=== PATIENT | male | born 1955 | race Caucasian/White ===

== ENCOUNTER 2016-04-26 09:28 | Emergency (ER) ==
[2016-04-26 09:34] VITALS: BP 154/84; TEMP 98.8; BMI 21.5
--- NOTE | 2016-04-26 09:48 | ED.PDOC ---
General ED Provider: Dr. MYRIAM ELLIOTT JR Chief Complaint: GI Bleed Stated Complaint: 60YO M this am noted blood in stool-- straining for months-- onstipation-- red drops of blood this am-- abd discomfort-- treated at clinic for constipation[End] 98.8 73 20 97% 154/84 10 2 stools this am,bright red blood SMALL amount, abd cramping[End] Time Seen by Physician: 09:49 Mode of Arrival: Walk-In Information Source: Patient Exam Limitations: No limitations [facility] Nursing and Triage Documentation Reviewed and Agree: No Review of Systems - Review Of Systems Constitutional: Reports: Malaise GI: Reports: Abdominal pain, Constipated, Rectal bleeding All Other Systems: Other Past Medical History - Past Medical History Previously Healthy: Yes Endocrine: Reports: None Cardiovascular: Reports: Hypertension Respiratory: Reports: None Hematological: Reports: None Gastrointestinal: Reports: GERD, Diverticulitis Genitourinary: Reports: None Neuro/Psych: Reports: None Musculoskeletal: Reports: None Cancer: Reports: None - Surgical History General Surgical History: Reports: Hernia Repair (DOUBLE HERNIA ) - Family History Family History: Reports: Unknown - Social History Smoking Status: Current every day smoker, Heavy tobacco smoker Hx Substance Use: No Alcohol Screening: None Physical Exam - Physical Exam Appearance: Well-appearing, No pain distress, Well-nourished Pain Distress: Moderate Eyes: KURT, EOMI, Conjunctiva clear ENT: Ears normal, Nose normal, Oropharynx normal Neck: Supple Cardiovascular: RRR, Pulses normal, No rub, No murmur GI/: Soft, Tender (left lower quadrant) Musculoskeletal: Normal strength, ROM intact, No edema, No calf tenderness Skin: Warm, Dry, Normal color Neurological: Sensation intact, Motor intact, Reflexes intact, Cranial nerves intact, Alert, Oriented Psychiatric: Affect appropriate, Mood appropriate Re-Evaluation - Re-Evaluation Time of Re-Evaluation: 10:27 ([id number] patietn notes 20 pound wt loss informed need to follow up with GI or surgery - states supposed to follwo up with 3 year colonoscopy- is probably due) Status: Unchanged Critical Care Note - Critical Care Note Total Time (mins): 0 Course - Course Orders, Labs, Meds: Lab Review 04/26/16 10:00 Stl Occult Blood (IFOB) Positive Stool Occult Blood #2 Pending Stool Occult Blood #3 Pending Orders Category Date Time Status OCCULT BLOOD, STOOL Stat LAB 04/26/16 10:00 Results Vital Signs: Temp Pulse Resp BP Pulse Ox 04/26/16 09:28 98.8 F 73 20 154/84 H 97 Departure - Departure Time of Disposition: 10:14 Disposition: HOME SELF-CARE Discharge Problem: Acute GI bleeding, Rectal pain Instructions: Rectal Bleeding (ED), Rectal Pain (ED) Condition: Good Pt referred to PMD for follow-up: Yes Additional Instructions: no evidence of blood on exam OBTAIN CONSULT FOR GASTROENTEROLOGY OR SURGICAL EVALUATION FOR RECTAL BLEED WITH HISTORY OF WEIGHT LOSS may follow up with usual specialist as before add fiber for three days- metamucil or citrusel full dose then half dose as needed for constipation if light headed if fever over 101.0, if bloody stools more3 than once or twice a day-return follow up with PMD - follow up with GI Prescriptions: Hydrocortisone Acetate [Anusol-Hc] 25 mg RC BID PRN #14 supp.rect PRN Reason: Rectal Discomfort Hyoscyamine Sulfate [Levsin-Sl] 0.125 mg SL TID PRN #12 tab.subl PRN Reason: crampy abdominal pain Allergies/Adverse Reactions: Allergies ciprofloxacin Adverse Reaction (Uncoded 04/26/16 09:37) ciprofloxacin HCl Adverse Reaction (Uncoded 04/26/16 09:37) Penicillins Adverse Reaction (Uncoded 04/26/16 09:37) Home Medications: Ambulatory Orders Hydrocortisone Acetate [Anusol-Hc] 25 mg RC BID PRN #14 supp.rect 04/26/16 Hyoscyamine Sulfate [Levsin-Sl] 0.125 mg SL TID PRN #12 tab.subl 04/26/16
[2016-04-26 10:12] LABS: OCCULT BLOOD INTERNAL QC 1 INTERNAL QC VALID; OCCULT BLOOD SAMPLE 1 POSITIVE (NEGATIVE)
[2016-04-26 12:45] LABS: OCCULT BLOOD INTERNAL QC 2 INTERNAL QC VALID; OCCULT BLOOD INTERNAL QC 3 INTERNAL QC VALID; OCCULT BLOOD SAMPLE 2 NO SPECIMEN RECEIVED (NEGATIVE); OCCULT BLOOD SAMPLE 3 NO SPECIMEN RECEIVED (NEGATIVE)
== END 2016-04-26 10:32 | disposition home or self-care (01) ==
LOC: ED 09:28
DX: K92.1 Melena (principal); K62.89 Other specified diseases of anus and rectum; R10.32 Left lower quadrant pain; F17.210 Nicotine dependence, cigarettes, uncomplicated
CPT/HCPCS: 82272; 99283

== ENCOUNTER 2016-04-27 14:09 | Outpatient (CLI) ==
[2016-04-26 09:34] VITALS: BMI 21.5
[2016-04-27 14:50] LABS: BASOPHILS # (AUTO) 0.1 K/uL (0-0.2); BASOPHILS % (AUTO) 0.5 % (0.0-3.0); EOSINOPHILS # (AUTO) 0.5 K/ul (0.0-0.7); EOSINOPHILS % (AUTO) 3.9 % (0.0-7.0); HEMATOCRIT 43.4 % (42.0-52.0); IMMATURE GRANULOCYTE % (AUTO) 0.5 % (0.0-5.0); LYMPHOCYTES % (AUTO) 23.3 (10.0-50.0); MEAN CORPUSCULAR HEMOGLOBIN 31.8 pg (27.0-31.0); MEAN CORPUSCULAR HGB CONC 34.6 (31.8-35.4); MEAN CORPUSCULAR VOLUME 91.9 fl (80.0-94.0); MONOCYTES # (AUTO) 0.9 K/uL (0.4-2.0); MONOCYTES % (AUTO) 7.1 (0-10); NEUTROPHILS # (AUTO) 8.4 K/ul (2.0-6.9); NEUTROPHILS % (AUTO) 64.7; PLATELET COUNT 296 10^3/uL (140-440); RED BLOOD COUNT 4.72 10^6/ul (4.70-6.10); WHITE BLOOD COUNT 13.03 K/ul (4.2-10.2)
[2016-04-27 14:57] LABS: ALBUMIN/GLOBULIN RATIO 1.25; BILIRUBIN,TOTAL 0.71 mg/dL (0.00-1.20); BUN/CREATININE RATIO 14.15; CALCIUM 9.4 mg/dL (8.2-10.2); CREATININE 1.13 mg/dL (0.60-1.10); TOTAL PROTEIN 7.2 g/dL (5.8-8.1)
--- NOTE | 2016-04-27 15:15 | CT ---
EXAM: CT abdomen pelvis without contrast HISTORY: Hemorrhage of the anus and rectum COMPARISON: CT abdomen pelvis 07/04/2013 TECHNIQUE: Serial axial images of the abdomen pelvis were performed from the lung bases through the inferior pelvis without contrast. These were viewed in multiple planes. FINDINGS: The lung bases are clear. Limited evaluation of the upper abdomen demonstrates numerous low attenuation lesions throughout the liver which are unchanged with the largest near the falciform ligament measuring 3 cm in diameter w ith Hounsfield units consistent with a cyst. Gallbladder is distended with no evidence of gallstone s or inflammation. The adrenal glands are unremarkable. The right kidney is normal. The left kidn ey demonstrates a stable lobular low attenuation lesion off the midpole of the left kidney measuring 4.4 x 3.5 cm, with Hounsfield units consistent with a cyst. The spleen is normal. The pancreas is unremarkable. The stomach is mild distended. There is thickening and mild inflammatory stranding involving the proximal sigmoid and the descendin g colon beginning near the splenic flexure. No definitive mass is identified. The remaining colon is unremarkable. The appendix is normal. The small bowel in the abdomen pelvis is normal. There i s mild atherosclerotic disease. There is no lymphadenopathy, free fluid or free air. There is surg ical change in the pelvis. The urinary bladder is nondistended. The osseous structures demonstrate mild scattered degenerative disease of the spine. IMPRESSION: 1. Thickening and mild inflammatory stranding involving the descending and the proximal sigmoid col on consistent with colitis. No focal fluid collection or free air is identified. 2. Multiple low attenuation hepatic cysts and stable left renal cyst. 3. Mild atherosclerotic disease and degenerative disease of the spine.
== END 2016-04-27 14:10 | disposition home or self-care (01) ==
LOC: RAD 14:09
PROVIDERS: ATTEND Nurse Practitioner Family
DX: R07.89 Other chest pain (principal); K62.5 Hemorrhage of anus and rectum; R19.5 Other fecal abnormalities
CPT/HCPCS: 36415; 80053; 82150; 83690; 85025; 93005; 93010

== ENCOUNTER 2016-05-09 11:10 | Inpatient (IN) ==
[2016-05-09 11:59] LABS: BASOPHILS # (AUTO) 0.1 K/uL (0-0.2); BASOPHILS % (AUTO) 0.7 % (0.0-3.0); EOSINOPHILS # (AUTO) 0.4 K/ul (0.0-0.7); EOSINOPHILS % (AUTO) 4.1 % (0.0-7.0); HEMATOCRIT 46.3 % (42.0-52.0); HEMOGLOBIN 15.9 g/dl (14.0-18.0); IMMATURE GRANULOCYTE % (AUTO) 0.4 % (0.0-5.0); LYMPHOCYTES # (AUTO) 1.9 K/uL (0.60-3.4); LYMPHOCYTES % (AUTO) 19.9 (10.0-50.0); MEAN CORPUSCULAR HEMOGLOBIN 32.1 pg (27.0-31.0); MEAN CORPUSCULAR HGB CONC 34.3 (31.8-35.4); MEAN CORPUSCULAR VOLUME 93.5 fl (80.0-94.0); MONOCYTES # (AUTO) 0.6 K/uL (0.4-2.0); MONOCYTES % (AUTO) 6.2 (0-10); NEUTROPHILS # (AUTO) 6.7 K/ul (2.0-6.9); NEUTROPHILS % (AUTO) 68.7; PLATELET COUNT 336 10^3/uL (140-440); RED BLOOD COUNT 4.95 10^6/ul (4.70-6.10); WHITE BLOOD COUNT 9.69 K/ul (4.2-10.2)
[2016-05-09 12:26] LABS: ALANINE AMINOTRANSFERASE 37 U/L (12-78); ALBUMIN/GLOBULIN RATIO 1.25; ALKALINE PHOSPHATASE 90 U/L (56-119); ANION GAP 11.4; ASPARTATE AMINO TRANSFERASE 33 U/L (15-37); BLOOD UREA NITROGEN 18 mg/dL (7-18); BUN/CREATININE RATIO 16.07; CALCIUM 9.5 mg/dL (8.2-10.2); CARBON DIOXIDE 31 mmol/L (23-31); CHLORIDE 103 mmol/L (98-107); CREATINE KINASE 88 U/L; CREATININE 1.12 mg/dL (0.60-1.10); GLUCOSE 126 mg/dL (82-115); POTASSIUM 3.4 mmol/L (3.5-5.1); SODIUM 142 mmol/L (136-145); TOTAL PROTEIN 7.2 g/dL (5.8-8.1)
[2016-05-09 12:29] LABS: PARTIAL THROMBOPLASTIN TIME 21.6 SEC (23.9-40.0); PROTHROMBIN TIME 10.2 SEC (9.3-11.0)
--- NOTE | 2016-05-09 14:53 | MRI ---
EXAM: MRI brain without and with IV contrast. DATE: 05/09/2016. HISTORY: Ataxia, right-sided weakness developed May 07 2016. Right-sided weakness and numbness e specially right hand. TECHNIQUE: Sagittal T1W the and postcontrast, axial T2W, axial FLAIR, axial T1W pre and postcontras t, axial DWI, coronal T1W postcontrast, and coronal T2W GRE [facility] the [facility] Kaia magnet. CONTRAST: Omniscan - 14 ml IV. COMPARISON: CT head 04/12/2015. MRI brain 10/10/2014. FINDINGS: Lateral ventricles, temporal tips, Sylvian fissures, and some frontal lobe sulci are slig htly prominent due to minor involutional change. No midline shift, mass effect or loculated extra-a xial fluid collection is demonstrated. No acute hemorrhage or neoplasm is identified. Narrow, confl uent rim of T2W/FLAIR hyperintensity is observed in the white matter abutting each lateral ventricle . Small number of 2-7 mm, T2W/FLAIR bright foci are scattered in the jo radiata, centrum semiova le and subcortical white matter similar to the September 2014. Prominent Virchow-Roger spaces us old le ft posterior putamen lacunar infarcts (x2) may account for the 2.6 mm and 3.4 mm T2W bright, T1W mohinder k foci. Several 5 mm to 2.2 cm DWI bright, T2W/FLAIR isointense foci in the left parietal lobe are consistent with acute, nonhemorrhagic infarcts of the cortex, subcortical white matter and centrum s emiovale on axial images #18, 19, 20. The watt - white matter differentiation is normal. The 7th/8 th cranial nerve complexes, cerebellopontine angles, brainstem, and visible cervical spinal cord are normal. There is no cerebellar tonsillar ectopia. Pituitary gland is normal in size and signal. Corpus callosum is normal in size and configuration. Left vertebral artery is dominant. Flow voids are present in the major intracranial arteries and in the dural venous sinuses. No aneurysm, AVM o r dural venous sinus thrombosis is apparent. No orbit abnormality is identified. Moderate number o f right mastoid air cells have T2W bright, T1W intermediate signal similar to previous MRI. Left ma stoid air cells are unremarkable. There is mucosal thickening in several ethmoid air cells and in tl th maxillary sinuses. No neck mass or lymphadenopathy is detected. No calvarial neoplasm or acute fr acture is evident. IMPRESSIONS: 1. Acute, non hemorrhagic left parietal lobe infarcts. 2. No acute hemorrhage, mass or hydrocephalus. 3. Minor / mild supratentorial small vessel disease. 4. Virchow-Roger spaces vs old left putamen infarcts. 5. Minimal cerebral involutional change. 6. Moderate, chronic right mastoid disease. 7. Minor ethmoid and maxillary sinus disease. Critical result: Report called to ER physician at 1448 hrs, 05/09/2016.
--- NOTE | 2016-05-09 15:16 | ED.PDOC ---
General ED Provider: Dr. JANUSZ COLE Chief Complaint: Stroke Stated Complaint: CVA Time Seen by Physician: 11:11 Mode of Arrival: Walk-In Information Source: Patient Exam Limitations: No limitations Nursing and Triage Documentation Reviewed and Agree: Yes Neurological Complaint Exam - Weakness Complaint/Exam Last Known Well: 2 DAYS AGO Onset: Sudden Duration: 2 DAYS AGO WOKE UP WITH RIGHT HAND WEAKNESS AND VERTIGO WEAKNESS IMPROVED Symptoms Are: Still present (INTERMS OF VERTIGO) Timing: Constant Initial Severity: Mild Current Severity: Mild Character: Reports: Lightheaded, Weak Aggravating: Reports: None Alleviating: Reports: None Associated Signs and Symptoms: Denies: Nausea, Vomiting, Diaphoresis, Tinnitus, Chest pain, Short of air, Palpitations, Unsteady gait, GI blood loss, Visual changes, Decreased oral intake, Change in medication, Change in diet, OTC meds, Loss of balance Cardiac Risk Factors: Reports: Hypertension CVA Risk Factors: Reports: Hypertension Related Surgical History: Reports: None JVD Present: No Carotid Bruit Present: No Rectal Heme Positive: No Nystagmus Present: No Gag Reflex Present: Yes Meningeal Signs Positive: No Focal Weakness: Present: None Focal Sensory Loss: Present: None Gait: Ataxic [id number]: Normal Findings Differential Diagnoses: Other (CVA) Quality Indicators for Cardiac Chest Pain: EKG in 10min. Quality Indicators for AMI: EKG in 10min. Review of Systems - Review Of Systems Constitutional: Reports: No symptoms Eyes: Reports: No symptoms Ears, Nose, Mouth, Throat: Reports: No symptoms Respiratory: Reports: No symptoms Cardiac: Reports: No symptoms GI: Reports: No symptoms : Reports: No symptoms Musculoskeletal: Reports: No symptoms Skin: Reports: No symptoms Neurological: Reports: Weakness (RIGHT HAND AND ATAXIA ) Endocrine: Reports: No symptoms Hematologic/Lymphatic: Reports: No symptoms All Other Systems: Reviewed and Negative Past Medical History - Past Medical History Previously Healthy: Yes Endocrine: Reports: None Cardiovascular: Reports: Hypertension Respiratory: Reports: None Hematological: Reports: None Gastrointestinal: Reports: GERD, Diverticulitis Genitourinary: Reports: None Neuro/Psych: Reports: None Musculoskeletal: Reports: None Cancer: Reports: None - Surgical History General Surgical History: Reports: Hernia Repair (DOUBLE HERNIA ) - Family History Family History: Reports: Unknown - Social History Smoking Status: Current every day smoker, Heavy tobacco smoker Hx Substance Use: No Alcohol Screening: None Physical Exam - Physical Exam Appearance: Well-appearing, No pain distress, Well-nourished Eyes: KURT, EOMI, Conjunctiva clear ENT: Ears normal, Nose normal, Oropharynx normal Respiratory: Airway patent, Breath sounds clear, Breath sounds equal, Respirations nonlabored Cardiovascular: RRR, Pulses normal, No rub, No murmur GI/: Soft, Nontender, No masses, Bowel sounds normal, No Organomegaly Musculoskeletal: Normal strength, ROM intact, No edema, No calf tenderness Skin: Warm, Dry, Normal color Neurological: Sensation intact (ATAXIC), Motor intact, Reflexes intact, Cranial nerves intact Psychiatric: Affect appropriate, Mood appropriate Interpretation - Radiology Interpretation Radiology Interpretation By: Radiologist Radiology Results: Positive (CVA ACUTE LEFT PARIETAL LOBE) - 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 Rate: 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 Rhythm: Sinus Ectopy: None - EKG Interpretation Rate: Normal Rhythm: Sinus Ectopy: None Rayle: NL ST Segment: Normal Re-Evaluation - Re-Evaluation Time of Re-Evaluation: 12:00 Status: Unchanged Vital Signs Stable: Yes Pain Level: 0 Appearance: NAD Lungs: Clear Skin: Warm and Dry Neuro: Alert and Oriented X3 CV: RRR - Re-Evaluation Time of Re-Evaluation: 00:00 Vital Signs Stable: Yes Pain Level: 0 Appearance: NAD Skin: Warm and Dry Neuro: Alert and Oriented X3 CV: RRR (HOSPITALIST SAW PT IN THE E.D.) Physician Notification - Case Discussed Admit To: Inpatient Critical Care Note - Critical Care Note Total Time (mins): 0 Course - Course Hematology/Chemistry: 05/09/16 11:20 05/09/16 11:20 Orders, Labs, Meds: Lab Review 05/09/16 11:20 WBC 9.69 RBC 4.95 Hgb 15.9 Hct 46.3 MCV 93.5 MCH 32.1 H MCHC 34.3 RDW Coeff of Juan 12.6 Plt Count 336 Immature Gran % (Auto) 0.4 Neut % (Auto) 68.7 Lymph % (Auto) 19.9 [place] % (Auto) 6.2 Eos % (Auto) 4.1 Baso % (Auto) 0.7 Immature Gran # (Auto) 0.0 Neut # 6.7 Lymph # 1.9 Traill # 0.6 Eos # 0.4 Baso # 0.1 PT 10.2 INR 0.99 APTT 21.6 L Sodium 142 Potassium 3.4 L Chloride 103 Carbon Dioxide 31 Anion Gap 11.4 BUN 18 Creatinine 1.12 H Estimated GFR (MDRD) 67.00 BUN/Creatinine Ratio 16.07 Glucose 126 H Calcium 9.5 Total Bilirubin 0.60 AST 33 ALT 37 Alkaline Phosphatase 90 Total Creatine Kinase 88 Troponin I < 0.0100 Total Protein 7.2 Albumin 4.0 Globulin 3.2 Albumin/Globulin Ratio 1.25 Orders Category Date Time Status EKG-(ED ONLY) Stat CARDIO 05/09/16 11:50 Completed CBC W/ AUTO DIFF Stat LAB 05/09/16 11:20 Completed COMPREHENSIVE METABOLIC PANEL Stat LAB 05/09/16 11:20 Completed CREATINE KINASE Stat LAB 05/09/16 11:20 Completed PARTIAL THROMBOPLASTIN TIME Stat LAB 05/09/16 11:20 Completed PT WITH INR Stat LAB 05/09/16 11:20 Completed TROPONIN I Stat LAB 05/09/16 11:20 Completed MRI BRAIN W/WO CONTRAST Stat RADS 05/09/16 12:56 Completed Vital Signs: Temp Pulse Resp BP Pulse Ox 05/09/16 11:11 96.9 F L 87 16 158/111 H 99 Departure - Departure Time of Disposition: 15:19 Disposition: ADMITTED INPATIENT Discharge Problem: Acute CVA (cerebrovascular accident) Instructions: Self Care Measures After a Stroke (ED) Condition: Good Pt referred to PMD for follow-up: No Additional Instructions: Please call your Family Physician as soon as possible to schedule a follow-up appointment. Allergies/Adverse Reactions: Allergies ciprofloxacin [From Cipro] Adverse Reaction (Verified 05/09/16 11:16) Penicillins Adverse Reaction (Verified 05/09/16 11:16)
[2016-05-09] MEDS ORDERED: XANAX PO PRN (15:23)
[2016-05-09] MEDS ORDERED: NORVASC PO ONE (15:30)
[2016-05-09] MEDS ORDERED: NON-FORMULARY MEDICATION (Amlodipine Besylate [Norvasc] 10 MG) PO SCH ×44 (15:30→17:30)
[2016-05-09] MEDS: SODIUM CHLORIDE 1,000 ML IV SCH (16:10)
[2016-05-09 16:23] VITALS: BMI 20.5
[2016-05-09] MEDS ORDERED: CATAPRES PO PRN (18:42)
[2016-05-09] MEDS ORDERED: CARAFATE ONE (19:48)
[2016-05-09] MEDS: ASPIRIN EC PO SCH (20:18)
[2016-05-09] MEDS: BENADRYL PO SCH (20:18)
[2016-05-09] MEDS: ZANTAC PO SCH (20:18)
[2016-05-09] MEDS ORDERED: CARAFATE PO SCH (21:00)
[2016-05-10 05:09] LABS: BASOPHILS # (AUTO) 0.1 K/uL (0-0.2); BASOPHILS % (AUTO) 0.7 % (0.0-3.0); EOSINOPHILS # (AUTO) 0.6 K/ul (0.0-0.7); EOSINOPHILS % (AUTO) 7.2 % (0.0-7.0); HEMATOCRIT 40.8 % (42.0-52.0); HEMOGLOBIN 13.9 g/dl (14.0-18.0); IMMATURE GRANULOCYTE % (AUTO) 0.6 % (0.0-5.0); LYMPHOCYTES % (AUTO) 35.1 (10.0-50.0); MEAN CORPUSCULAR HEMOGLOBIN 32.1 pg (27.0-31.0); MEAN CORPUSCULAR HGB CONC 34.1 (31.8-35.4); MEAN CORPUSCULAR VOLUME 94.2 fl (80.0-94.0); MONOCYTES # (AUTO) 0.7 K/uL (0.4-2.0); MONOCYTES % (AUTO) 8.1 (0-10); NEUTROPHILS # (AUTO) 4.2 K/ul (2.0-6.9); NEUTROPHILS % (AUTO) 48.3; PLATELET COUNT 267 10^3/uL (140-440); RED BLOOD COUNT 4.33 10^6/ul (4.70-6.10); WHITE BLOOD COUNT 8.64 K/ul (4.2-10.2)
[2016-05-10] MEDS: SODIUM CHLORIDE 1,000 ML IV SCH ×2 (05:10→20:54)
[2016-05-10 05:56] LABS: ALBUMIN 3.5 g/dL (3.4-5.0); ALBUMIN/GLOBULIN RATIO 1.35; ANION GAP 11.4; BILIRUBIN,TOTAL 0.52 mg/dL (0.00-1.20); BUN/CREATININE RATIO 18.08; CALCIUM 8.8 mg/dL (8.2-10.2); CHOL/HDL RATIO 3.4 (4.5-6.4); CREATININE 0.94 mg/dL (0.60-1.10); POTASSIUM 4.4 mmol/L (3.5-5.1); TOTAL PROTEIN 6.1 g/dL (5.8-8.1)
[2016-05-10] MEDS: ZESTRIL PO SCH (08:44)
[2016-05-10] MEDS: ASPIRIN EC PO SCH (08:44)
[2016-05-10] MEDS: CARAFATE PO SCH ×2 (08:44→18:07)
[2016-05-10] MEDS: NORVASC PO SCH (08:44)
--- NOTE | 2016-05-10 11:36 | PCM.PROG ---
Attending Provider: ATTENDING PROVIDER: Dr. GRETEL WILLINGHAM DATE OF SERVICE: 05/10/16 SUBJECTIVE: This 60 year old WHITE/ M was hospitalized 05/09/16. The patient is admitted with weakness on the right side and left parietal stroke The patient continues to complain of weakness of the right lower and right upper extremity. The patient has no slurred speech. He has an ataxic gait. The patient's motor strength is normal however he states it feels like he is floating when he walks. REVIEW OF SYSTEMS: CONSTITUTIONAL: No fever, no chills. ENDOCRINE: No weight loss or weight gain. HEENT: No sinus drainage, no sore throat. CVS: No angina symptoms. No CHF symptoms. No palpitations. No atypical chest pain for CAD. No shortness of breath. RESPIRATORY: No cough, no hemoptysis. GI: No melena. No abdominal pain. No nausea, no vomiting. : No hematuria. No polyuria. SKIN: No rash. No wounds. MUSCULOSKELETAL: No pain. STOCK CHECKER: No blackout, no dizziness. No headache. No double vision. PSYCHIATRIC: Not anxious; no depression. No suicidal thoughts. No homicidal thoughts. PHYSICAL EXAMINATION: GENERAL: Lying in bed in no distress. VITAL SIGNS: Temperature 96.8 F, Pulse 67, Respiratory Rate 16, BP 129/83, Pulse Ox 98% HEENT: Normocephalic, atraumatic. Mucosa is dry, pallor positive. NECK: No JVP, no carotid bruit. No lymphadenopathy. CARDIAC: S1, S2, no S3. No murmur, gallop or regurgitation. LUNGS: Clear to auscultation. ABDOMEN: Soft, non-tender. Bowel sounds active. No rigidity, guarding or CVA tenderness. EXTREMITIES: No clubbing, cyanosis or edema. Gait: Ataxic. NEUROLOGIC: Awake, alert and oriented x3. Motor strength is normal. LYMPHATIC: No palpable lymph nodes SKIN: Not dry. Intact. MUSCULOSKELETAL: No joint swelling. LAB REVIEW: 05/10/16 05:00 05/10/16 05:00 05/10/16 05:00: WBC 8.64, RBC 4.33 L, Hgb 13.9 L, Hct 40.8 L, MCV 94.2 H, MCH 32.1 H, MCHC 34.1, RDW Coeff of Juan 12.7, Plt Count 267, Immature Gran % (Auto) 0.6, Neut % (Auto) 48.3, Lymph % (Auto) 35.1, [place] % (Auto) 8.1, Eos % (Auto) 7.2 H, Baso % (Auto) 0.7, Immature Gran # (Auto) 0.1, Neut # 4.2, Lymph # 3.0, [place] # 0.7, Eos # 0.6, Baso # 0.1, Sodium 144, Potassium 4.4, Chloride 109 H, Carbon Dioxide 28, Anion Gap 11.4, BUN 17, Creatinine 0.94, Estimated GFR (MDRD ) 82.00, BUN/Creatinine Ratio 18.08, Glucose 87, Calcium 8.8, Total Bilirubin 0.52, AST 25, ALT 29, Alkaline Phosphatase 72, Total Protein 6.1, Albumin 3.5, Globulin 2.6, Albumin/Globulin Ratio 1.35, Triglycerides 82, Cholesterol 105, LDL Cholesterol, Calc 58, VLDL Cholesterol 16, HDL Cholesterol 31 L, Cholesterol /HDL Ratio 3.4 L, TSH 1.192, Free T4 1.10 ASSESSMENT: 1. Acute CVA, left parietal 2. Ataxia 3. Hypertension PLAN: 1. Carotid ultrasound 2. PT evaluation 3. Aspirin 81 mg p.o. daily Plan and coordination of the patient's care discussed in the presence of Underwriting Service Representative and nurse. CONDITION: Stable SCRIBED BY: RICK ABEL Mechanic Senior scribed while in presence of service performed by Dr. GRETEL WILLINGHAM on 05/10/16 ([id number])
--- NOTE | 2016-05-10 11:37 | RS.PTINEVL ---
Subjective - Patient information Date of Evaluation: 05/10/16 Date of Arrival on Unit: 05/09/16 Admitted From:: Emergency Dept Usual Living Arrangement: With Spouse Living Arrangement Comments: lives at home Medical History: Hypertension Medical History Comments:: double hernia repair, OA, GERD, Prostate removal 2013 Subjective Information/ Patient Comments:: Patient reports he can get around fine. States he doesn't need gait belt. Denies any dizziness. States his main problem is numbness and weakness in the first three fingers of the right hand. Right wrist feels slightly weak. States he drove himself to the ER. States the only reason he did not come in on Monday, when it started, is because he did not feel like driving. States he cannot write very well with the right hand due to weakness. 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 Sensation - Sensation Right Upper Extremity Sensation: Impaired Left Upper Extremity Sensation: Intact/Normal Right Lower Extremity Sensation: Intact/Normal Left Lower Extremity Sensation: Intact/Normal Balance - Sitting Balance and Reactions Static Sitting Balance: Normal Dynamic Sitting Balance: Normal Sitting Equilibrium Reactions: Within Normal Limits Left, Within Normal Limit Right Sitting Protective Reactions: Within Normal Limits Left, Within Normal Limit Right - Standing Balance and Reactions Static Standing Balance: Good Dynamic Standing Balance: Good Standing Equilibrium Reactions: Within Normal Limits Left, Within Normal Limit Right Standing Protective Reactions: Within Normal Limits Left, Within Normal Limit Right Functional Mobility - Bed Mobility Rolling R/L: Independent Scooting: Independent Supine to Sit: Independent Sit to Supine: Independent - Transfers Sit to Stand: Independent Stand to Sit: Independent Stand Pivot Transfers: Independent - Safety Awareness Safety Awareness: Good Ambulation - Ambulation Weight Bearing Status: FWB Distance: 400 feet Assistance needed with Ambulation: Supervision Quality of Ambulation: Patient ambulates without an assistive device and without shoes (wearing hospital socks). Demonstrates no gait deviation: clears feet consistently during swing phase, no loss of balance, equal stride length, continues continuity of steps while changing direction. Treatment time - Time with patient Total treatment time: 20 (mins) Patient Education - Education Patient Education: Education of diagnosis Teaching Recipient: Patient Teaching Methods: Discussion, Demonstration Comments: Patient given red theraband to work his right wrist. Also given stress ball and theraputty for hand/electrical transmission engineer strengthening. Assessment - Assessment Problem List:: Weakness (right hand/wrist) Comments: Recommend OT consult to address right UE weakness. Plan Frequency of Treatment: One time treatment Duration of Treatment: One Time Treatment Anticipated Discharge Destination: Home
--- NOTE | 2016-05-10 12:33 | US ---
EXAM: ULTRASOUND CAROTID DUPLEX, BILATERAL HISTORY: Right-sided weakness FINDINGS: Tirado-scale ultrasound, color Doppler and spectral analysis was performed. Velocities are in meters per second. By tirado scale and color Doppler imaging, there were regions of heterogeneous plaque formation identi fied within the carotid bulbs and internal carotid arteries. These regions of plaque appeared to re main less than 50% vessel diameter. RIGHT: External carotid artery peak systolic velocity: 0.9/0.1 Common carotid artery peak systolic velocity/end diastolic velocity: 1.1/0.3 Internal carotid artery peak systolic velocity: 1.0 ICA/CCA peak systolic velocity ratio: 0.9 ICA end diastolic velocity: 0.3 LEFT: External carotid artery peak systolic velocity: 1.2/0.2 Common carotid artery peak systolic velocity/end diastolic velocity: 0.8/0.2 Internal carotid artery peak systolic velocity: 0.8 ICA/CCA peak systolic velocity ratio: 1.0 ICA end diastolic velocity: 0.3 The right and left vertebral arteries were antegrade. IMPRESSION: 1. By tirado scale and color Doppler imaging, there were regions of heterogeneous plaque formation id entified within the carotid bulbs and internal carotid arteries. These regions of plaque appeared t o remain less than 50% vessel diameter. 2. Internal carotid artery peak systolic velocities and ICA/CCA peak systolic velocity ratios indic ate no hemodynamically significant stenosis bilaterally. 3. Both vertebral arteries were antegrade.
--- NOTE | 2016-05-10 12:57 | HP ---
DATE OF SERVICE: 05/09/16 REASON FOR HOSPITALIZATION: Right sided weakness. HISTORY OF PRESENT ILLNESS: The patient is a 60 year old male been feeling weakness since Monday night. Monday night when he was going to the bed was fine, Monday morning woke up with the right sided weakness and the numbness getting better ever side. Right hand and the leg still feels weak and has some unsteady gait so came for the evaluation today and seen by Dr. More in the emergency room. Blood pressure was 158/111, some right sided weakness, MRI of the brain was done with and without contrast which showed the left parietal lobe infarct. At that time the patient is admitted to the hospital for the acute CVA. REVIEW OF SYSTEMS: CONSTITUTIONAL: No night sweats.Right sided weakness and numbness. No fever or chills. HEENT: Eyes: No visual changes. No eye pain. No eye discharge. ENT: No runny nose. No epistaxis. No sinus pain. No sore throat. No odynophagia. No ear pain. No congestion. RESPIRATORY: No cough, no congestion. No hemoptysis. CARDIOVASCULAR: No angina symptoms. No CHF symptoms. No atypical chest pain for CAD. No palpitations. No shortness of breath. GASTROINTESTINAL: No abdominal pain. No nausea or vomiting. No diarrhea or constipation. No hematemesis. No hematochezia. GENITOURINARY: No urgency. No frequency. No dysuria. No hematuria. No obstructive symptoms. No discharge. No pain. No significant abnormal bleeding. MUSCULOSKELETAL: No musculoskeletal pain. No joint swelling. No arthritis. NEUROLOGICAL: No headache. No neck pain. No syncope. No seizures. No dizziness. PSYCHIATRIC: Anxious. No depression. No suicidal thoughts. No homicidal thoughts. SKIN: No rash. No lesions. No wounds. ENDOCRINE: No unexplained weight loss. No weight gain. HEMATOLOGIC/LYMPHATIC: No anemia. No purpura. No petechiae. No prolonged or excessive bleeding. No palpable lymph nodes. PERSONAL/FAMILY/SOCIAL HISTORY: The patient does smoke, half pack a day for fifty years. and lives with the . 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 Family history is significant for the coronary artery disease. PAST MEDICAL/SURGICAL PROBLEMS: Hypertension COPD GERD Prostate Cancer Osteoarthritis Nicotine use Double hernia repair Circumcision Prostatectomy MEDICATIONS: Norvasc Lisinopril Zantac Carafate Xanax Benadryl ALLERGIES: Ciprofloxacin Penicillins PHYSICAL EXAMINATION: VITAL SIGNS: blood pressure 158/111, temperature 96.9, pulse 87, oxygen saturation 99% and respiratory rate 16. HEENT: Head normocephalic, atraumatic. Eyes: Extraocular muscles are intact. Pupils are equal, round and reactive to light and accommodation. Ears: No lesions. Nose appeared normal. Throat: No exudate or erythema. NECK: Supple. No JVD, no carotid bruit. No lymphadenopathy or thyromegaly. LUNGS: Clear to auscultation. Percussion note normal. Chest symmetrical. HEART: S1, S2, no S3. No murmurs. No cyanosis or clubbing. No ascites. Pulses: Dorsalis pedis and posterior tibial pulses +1 to +2 both sides. ABDOMEN: Soft. Nontender. Bowel sounds active. No CVA tenderness. No mass felt. EXTREMITIES: Right sided weakness and numbness, right upper and lower extremity. No edema. Full range of motion of all extremities, equal. NEUROLOGIC: No focal deficit. Cranial nerves II through XII are grossly intact. No headache, no double vision or headache. SKIN: Not dry. Intact. Turgor - normal. LYMPHATIC: No palpable lymph nodes/no lymphedema. MUSCULOSKELETAL: Normal joints with no swelling. Muscle tone is normal. LABS: WBC 9.69, hgb 15.9, hct 46.3, plt count 336, PT INR normal, Sodium 142, potassium 3.4, chloride 103, Bicarb 31, BUN 18, creatinine 1.12, glucose 126 and first set of cardiac enzymes are negative. EKG is normal. MRI of the brain left parietal infarct ASSESSMENT: 1. Acute parietal lobe infarct with right sided weakness 2. Hypertension 3. Anxiety 4. GERD 5. Dyslipidemia PLAN: 1. Admit patient to the regular floor 2. CBC and CMP today and daily 3. Cardiac and Troponin 4. Carotid Ultrasound in the morning 5. Aspirin 81mg PO daily 6. Blood pressure more than 180 give the Clonidine 0.2mg 7. TSH and lipids in the morning Will follow the patient in daily rounds. TIME SPENT: More than 60 minutes. MTDD
[2016-05-10] MEDS: BENADRYL PO SCH (20:55)
[2016-05-10] MEDS: ZANTAC PO SCH (20:55)
[2016-05-10] MEDS: COLACE PO SCH (20:56)
[2016-05-11 05:01] LABS: BASOPHILS # (AUTO) 0.1 K/uL (0-0.2); BASOPHILS % (AUTO) 0.6 % (0.0-3.0); EOSINOPHILS # (AUTO) 0.7 K/ul (0.0-0.7); EOSINOPHILS % (AUTO) 7.5 % (0.0-7.0); HEMOGLOBIN 13.7 g/dl (14.0-18.0); IMMATURE GRANULOCYTE % (AUTO) 0.2 % (0.0-5.0); LYMPHOCYTES # (AUTO) 3.4 K/uL (0.60-3.4); LYMPHOCYTES % (AUTO) 35.5 (10.0-50.0); MEAN CORPUSCULAR HEMOGLOBIN 31.9 pg (27.0-31.0); MEAN CORPUSCULAR HGB CONC 34.3 (31.8-35.4); MONOCYTES # (AUTO) 0.9 K/uL (0.4-2.0); MONOCYTES % (AUTO) 8.8 (0-10); NEUTROPHILS # (AUTO) 4.6 K/ul (2.0-6.9); NEUTROPHILS % (AUTO) 47.4; PLATELET COUNT 258 10^3/uL (140-440); WHITE BLOOD COUNT 9.65 K/ul (4.2-10.2)
[2016-05-11 05:34] LABS: ALBUMIN 3.5 g/dL (3.4-5.0); ALBUMIN/GLOBULIN RATIO 1.3; ANION GAP 9.7; BILIRUBIN,TOTAL 0.55 mg/dL (0.00-1.20); BUN/CREATININE RATIO 15.73; CALCIUM 8.8 mg/dL (8.2-10.2); CREATININE 0.89 mg/dL (0.60-1.10); POTASSIUM 3.7 mmol/L (3.5-5.1); TOTAL PROTEIN 6.2 g/dL (5.8-8.1)
[2016-05-11] MEDS: CARAFATE PO SCH (05:48)
[2016-05-11] MEDS: COLACE PO SCH (09:06)
[2016-05-11] MEDS: ZESTRIL PO SCH (09:06)
[2016-05-11] MEDS: ASPIRIN EC PO SCH (09:06)
[2016-05-11] MEDS: NORVASC PO SCH (09:06)
[2016-05-11 10:13] VITALS: BP 138/84; TEMP 97.5
--- NOTE | 2016-05-11 10:32 | ECHO2D ---
Date of Exam: 05/11/16 Ordering Physician: HOSPITALIST--GRETEL WILLINGHAM Reason for Echo: CVA, ATAXIA, HYPERTENSION M-Mode Normal Adult Results LV Dimensions Normal Adult Results AoV Opening excursions >1.6 >1.6 LVEDD-base- 3.5-5.8 3.9 Ao root dimensions 2.0-3.7 3.3 LVESD-base- 3.1-4.6 L. Atrium dimensions 1.9-3.8 2.8 Post. Wall thickness 0.8-1.1 1.2 IV septum (thickness) 0.7-1.2 1.1 Post. Wall excursion 0.72-1.3 NORMAL Septal motion NORMAL Systolic motion R. Ventricular cavity 1.5-2.0 NORMAL LVEF 60% 72% Paradoxical septal wall motion NORMAL 2-D : 2-D M Mode Echocardiogram was performed using apical four chamber and left parasternal long and short axis views. Mitral, tricuspid and aortic valves appear to be normal. Contractility of the left ventricle seems to be normal, so is the cavity size. Left atrial cavity size and aortic root appear to be normal. There is no pericardial effusion. There is no thrombus noted in the left ventricular or left aortic cavity. No mitral valve prolapse noted. M-MODE: MV: NORMAL AV: NORMAL TV: NORMAL PV: CHAMBER SIZE: NORMAL WALL MOTION: NORMAL PERICARDIUM: NORMAL INTERPRETATION: 1. 2 "D" "M" MODE ECHO MTDD
--- NOTE | 2016-05-11 13:02 | PCM.PROG ---
Attending Provider: ATTENDING PROVIDER: Dr. GERTEL WILLINGHAM DATE OF SERVICE: 05/11/16 SUBJECTIVE: This 60 year old WHITE/ M was hospitalized 05/09/16. The patient states he has lost quite a bit of weight in the last [address] scan of the abdomen done last week, will get those results. Echocardiogram done this morning. The patient states he is ambulating fine. He states he does have weakness in the right hand; discussed giving a rubber ball to squeeze for strengthening, Discussed possible discharge today. REVIEW OF SYSTEMS: CONSTITUTIONAL: No fever, no chills. ENDOCRINE: No weight loss or weight gain. HEENT: No sinus drainage, no sore throat. CVS: No angina symptoms. No CHF symptoms. No palpitations. No atypical chest pain for CAD. No shortness of breath. RESPIRATORY: No cough, no hemoptysis. GI: No melena. No abdominal pain. No nausea, no vomiting. : No hematuria. No polyuria. SKIN: No rash. No wounds. MUSCULOSKELETAL: No pain. CURTAIN CLEANER: No blackout, no dizziness. No headache. No double vision. PSYCHIATRIC: Not anxious; no depression. No suicidal thoughts. No homicidal thoughts. PHYSICAL EXAMINATION: GENERAL: Lying in bed in no distress. VITAL SIGNS: Temperature 97.6 F, Pulse 66, Respiratory Rate 16, BP 156/93, Pulse Ox 98% HEENT: Normocephalic, atraumatic. Mucosa is dry, pallor positive. NECK: No JVP, no carotid bruit. No lymphadenopathy. CARDIAC: S1, S2, no S3. No murmur, gallop or regurgitation. LUNGS: Clear to auscultation. ABDOMEN: Soft, non-tender. Bowel sounds active. No rigidity, guarding or CVA tenderness. EXTREMITIES: No clubbing, cyanosis or edema. NEUROLOGIC: Awake, alert and oriented x3. Weakness in the right hand. LYMPHATIC: No palpable lymph nodes SKIN: Not dry. Intact. MUSCULOSKELETAL: No joint swelling. LAB REVIEW: 05/11/16 04:05 05/11/16 04:05 05/11/16 04:05: WBC 9.65, RBC 4.30 L, Hgb 13.7 L, Hct 40.0 L, MCV 93.0, MCH 31.9 H, MCHC 34.3, RDW Coeff of Juan 12.6, Plt Count 258, Immature Gran % (Auto) 0.2, Neut % (Auto) 47.4, Lymph % (Auto) 35.5, [place] % (Auto) 8.8, Eos % (Auto) 7.5 H, Baso % (Auto) 0.6, Immature Gran # (Auto) 0.0, Neut # 4.6, Lymph # 3.4, [place] # 0.9, Eos # 0.7, Baso # 0.1, Sodium 142, Potassium 3.7, Chloride 107, Carbon Dioxide 29, Anion Gap 9.7, BUN 14, Creatinine 0.89, Estimated GFR (MDRD) 87.00, BUN/Creatinine Ratio 15.73, Glucose 82, Calcium 8.8, Total Bilirubin 0.55 , AST 25, ALT 27, Alkaline Phosphatase 71, Total Protein 6.2, Albumin 3.5, Globulin 2.7, Albumin/Globulin Ratio 1.30 ASSESSMENT: 1. Acute CVA, left parietal 2. Ataxia 3. Hypertension PLAN: 1. Possible discharge today 2. Clonidine p.r.n. for elevated blood pressure greater than 180 Plan and coordination of the patient's care discussed in the presence of Staff Nurse Anesthetist and nurse. CONDITION: Stable SCRIBED BY: RICK ABEL, Hotel Services Supervisor scribed while in presence of service performed by Dr. GRETEL WILLINGHAM on 05/11/16 ([id number])
--- NOTE | 2016-06-02 15:24 | DS ---
DATE OF SERVICE: 05/11/16 FINAL DIAGNOSIS: 1. Acute CVA, left parietal 2. Ataxia 3. Hypertension 4. Anemia, mild 5. COPD 6. History fo GERD 7. Prostate cancer removed in 2013 8. Osteoarthritis 9. Nicotine use, half pack a day for 50 years 10.Family history of coronary artery disease DISCHARGE INSTRUCTIONS: Discharge the patient home. Followup in the [facility] in 5-7 days. Continue the home medications. MEDICATIONS AT DISCHARGE: Norvasc Benadryl Lisinopril Zantac Carafate NEW PRESCRIPTIONS: Aspirin 81mg PO daily DIET INSTRUCTIONS: Regular ACTIVITY: As tolerated SMOKING: Counseling for smoking done. DISEASE SPECIFIC EDUCATION: Stroke Secondary prevention Medication side effects been discussed Lifestyle modification Smoking HOSPITAL COURSE: Michele Agustin who is a 60 year old male came to the emergency room with the right upper and lower extremity weakness which is more than 3 hours. He was seen by Dr. More. The patient was admitted to the hospital, MRI of the brain was done which showed the acute non-hemorrhagic left parietal infarct. The patient was started on IV fluids and home medication Zestril. Carotid Ultrasound was obtained which showed Less than 50% blockage. We did go ahead and get the echocardiogram which showed normal ejection fraction 72%. The patient was up and about gradually walking, had still some mild weakness on the right sided. He was put for the physical therapy but the patient was in good activity so they did not see that he was a candidate for that, he is not a candidate for the TCU care but we suggested outpatient physical therapy for which he qualified and the patient is being discharged home on the Aspirin. Lifestyle modification been again informed. TIME SPENT: More than 55 minute today. HADLEY
== END 2016-05-11 14:05 | disposition home or self-care (01) | DRG 65 ==
LOC: ED 11:10 → MEDSURG B 15:30
PROVIDERS: ADMIT Emergency Medicine; ATTEND Emergency Medicine
DX: I63.9 Cerebral infarction, unspecified (principal); G81.91 Hemiplegia, unspecified affecting right dominant side; R27.0 Ataxia, unspecified; I10 Essential (primary) hypertension; D64.9 Anemia, unspecified; F17.200 Nicotine dependence, unspecified, uncomplicated; Z79.899 Other long term (current) drug therapy; Z82.49 Family history of ischemic heart disease and other diseases of the circulatory system
CPT/HCPCS: 36415; 80053; 80061; 82550; 82962; 84439; 84443; 84484; 85025; 85610; 85730; 93005; 93010; 99223; 99233; 99239; 99284

== ENCOUNTER 2017-05-26 14:52 | Observation (INO) ==
[2017-05-26 15:24] VITALS: BMI 21.7
--- NOTE | 2017-05-26 16:44 | CT ---
Exam: CT of the brain without intravenous contrast. Comparison: 12/11/2015. Reason for exam: Status post altered mental status. FINDINGS: No acute intracranial hemorrhage, mass effect, ventricular dilatation, or territorial infa rction. The quadrigeminal and ambient cisterns are patent. There is no extraaxial fluid collection. The calvarium is intact without depressed skull fracture. No air-fluid levels are seen in the para nasal sinuses or mastoid air cells. Parenchymal changes are seen consistent with chronic microvascular disease Impression: 1. No acute intracranial findings. 2. Parenchymal changes consistent with chronic microvascular disease
--- NOTE | 2017-05-26 17:07 | US ---
EXAM: Bilateral carotid artery Doppler History: Dizziness. Comparison: Carotid Doppler 05/10/2016 Technique: Multiple sonographic images through the bilateral internal carotid arteries were obtained . Color duplex Doppler was used to interrogate vascular flow. Findings: The right ICA peak systolic velocity is within normal limits measuring 90 cm/sec. The right ICA/cca PSV ratio is normal at 1.3. The right vertebral artery is patent and demonstrates antegrade flow. G ray scale images demonstrate mild plaque buildup within the right internal carotid artery. The left ICA peak systolic velocity is within normal limits measuring 80 cm/sec. The left ICA/cca PS V ratio is normal at 1.0. The left vertebral artery is patent and demonstrates antegrade flow. Tirado scale images demonstrate mild plaque buildup within the left internal carotid artery. Impression: No significant hemodynamic stenosis of the bilateral internal carotid arteries.
[2017-05-26] MEDS: SODIUM CHLORIDE 1,000 ML IV SCH (19:00)
[2017-05-26] MEDS ORDERED: CARAFATE ONE (19:04)
[2017-05-26] MEDS: CARAFATE PO SCH (19:12)
[2017-05-26] MEDS: BENADRYL PO SCH (21:01)
[2017-05-26] MEDS: ZANTAC PO SCH (21:01)
[2017-05-27] MEDS: CARAFATE PO SCH ×2 (05:39→17:11)
[2017-05-27] MEDS ORDERED: NON-FORMULARY MEDICATION (Amlodipine Besylate [Norvasc] 10 MG) PO SCH (09:00)
[2017-05-27] MEDS: ZESTRIL PO SCH (09:54)
[2017-05-27] MEDS: NORVASC PO SCH (09:54)
[2017-05-27] MEDS: SODIUM CHLORIDE 1,000 ML IV SCH (19:10)
[2017-05-27] MEDS: ZANTAC PO SCH (20:24)
[2017-05-27] MEDS: BENADRYL PO SCH (20:24)
[2017-05-28] MEDS: CARAFATE PO SCH ×2 (05:31→17:14)
[2017-05-28] MEDS ORDERED: ASPIRIN CHEWABLE PO SCH (08:00)
[2017-05-28] MEDS: NORVASC PO SCH (08:38)
[2017-05-28] MEDS: ZESTRIL PO SCH (08:38)
[2017-05-28 16:38] VITALS: BP 132/79; TEMP 97.8
--- NOTE | 2017-06-07 11:44 | PN ---
DATE OF SERVICE: 05/27/17 SUBJECTIVE: The patient was admitted with the questionable change in mental status and TIA. The patient is awake and alert and not had anymore symptoms. CT of the head was negative for the stroke. Carotid did not show any blockage. Up and about walking. REVIEW OF SYSTEMS: CONSTITUTIONAL: No fever, no chills. HEENT: Normal. ENDOCRINE: No weight gain, no weight loss. CVS: No angina symptoms. No CHF symptoms. No palpitations. No atypical chest pain for CAD. No shortness of breath. No PND, no orthopnea. RESPIRATORY: No cough, no hemoptysis. GI: No nausea, no vomiting. No abdominal pain. : No hematuria. No polyuria. MUSCULOSKELETAL: No joint swelling. PSYCHIATRIC: Not anxious. No depression. No suicidal thoughts. No homicidal thoughts. SKIN: Intact. No rash. PHYSICAL EXAMINATION: V/S: Blood pressure 111/68, respiratory rate 20, heart rate 72, temperature 98.1 with saturation 94%. HEENT: Normocephalic, atraumatic. Mucosa dry. Pallor positive. No icterus. NECK: Supple. No JVD, no carotid bruit. No lymphadenopathy. LUNGS: Clear to auscultation. No rales or rhonchi. HEART: S1, S2 normal. No S3. No murmur, gallop or regurgitation. ABDOMEN: Soft, nontender. Bowel sounds active. No rigidity. No rebound or guarding. No CVA tenderness. EXTREMITIES: No pedal edema. No clubbing or cyanosis MUSCULOSKELETAL: No joint swelling. Mild left sided weakness. NEUROLOGIC: Awake, alert, oriented times three. No focal deficit. LYMPHATIC: No lymph nodes palpable. SKIN: Intact. Dry. LABS: WBC 9.50, hgb 13.5, hct 39.2, plt count 260, sodium 143, potassium 3.9, chloride 110, bicarb 25, BUN 14, creatinine 0.95, glucose 88. Toxicology is negative. Cholesterol Negative. CT head is negative. ASSESSMENT: 1. Status post change in mental status 2. Questionable TIA with slurry speech, resolved 3. History of recent CVA with left sided slight weakness 4. COPD 5. Hypertension 6. Prostate cancer 7. Continued nicotine use PLAN: 1. Benadryl 2. Norvasc 3. Zestril 4. Zantac 5. Carafate 6. IV fluids will be stopped 7. Continue the Aspirin PO daily Will follow the patient during the stay in the hospital TIME SPENT: More than 35 minutes MTDD
--- NOTE | 2017-07-07 11:44 | DS ---
DATE OF SERVICE: 05/28/17 FINAL DIAGNOSIS: 1. STATUS POST CHANGE IN MENTAL STATUS 2. QUESTIONABLE TIA WITH SLURRY SPEECH 3. HISTORY OF RECENT CVA WITH LEFT-SIDED SLIGHT WEAKNESS 4. COPD 5. HYPERTENSION 6. PROSTATE CANCER 7. CONTINUED NICOTINE USE DISCHARGE INSTRUCTIONS: 1. Discharge the patient home 2. Followup in office within 5 to 7 days MEDICATIONS AT DISCHARGE: Continue Xanax Norvasc Lisinopril Zantac Carafate Benadryl NEW PRESCRIPTIONS: Aspirin 81 mg p.o. daily DIET INSTRUCTIONS: Cardiac and Healthy ACTIVITY: As much as tolerated SMOKING: Smoker - advised to quit DISEASE SPECIFIC EDUCATION: Stroke and stroke prevention discussed explained to the patient, who verbalized understanding. HOSPITAL COURSE: The patient came to the office. The patient's brought him as patient had change in mental status, not himself, slurred speech. The patient was still having some slurry speech when seen in the office and admitted to the hospital but there was no lateralization signs. CT head negative. Carotid ultrasound did not show any blockage. The patient was started on Aspirin 81 mg p.o. daily. Two sets of cardiac enzymes were negative. Cholesterol panel showed 50. Urine is negative. Toxicology screen positive for tricyclic antidepressants and Benzodiazepine. Hemoglobin and hematocrit have been stable. The patient was up and about and started walking. In talking to the patient's , the patient has been going through a lot of stress and having some alcohol in between. She thinks maybe the alcohol along with the patient's Xanax might have been the problem but still TIA was on the highest priority list. Discussed with patient about alcoholism and he said that he was stressed out so he drank one week before this happened. Otherwise, the patient is up and about walking, did not have any complications. As the patient was doing well, did not have any problems , the patient was discharged home. TIME SPENT: MORE THAN 60 MINUTES MTDD
== END 2017-05-28 19:40 | disposition home or self-care (01) ==
LOC: INTOOBSV 14:52 → MEDSURG B 14:52
PROVIDERS: ADMIT Emergency Medicine; ATTEND Emergency Medicine
DX: R41.82 Altered mental status, unspecified (principal); R47.81 Slurred speech; I69.954 Hemiplegia and hemiparesis following unspecified cerebrovascular disease affecting left non-dominant side; J44.9 Chronic obstructive pulmonary disease, unspecified; I10 Essential (primary) hypertension; F17.210 Nicotine dependence, cigarettes, uncomplicated; Z85.46 Personal history of malignant neoplasm of prostate; Z79.899 Other long term (current) drug therapy
CPT/HCPCS: 36415; 80053; 80061; 80306; 80307; 81001; 82550; 82553; 84484; 85025; 93005; 93010; 99217; 99220; 99226

== ENCOUNTER 2017-07-13 | Emergency (ER) ==
[2017-07-13] VITALS: BMI 21.7
[2017-07-13 00:11] VITALS: TEMP 98.2
--- NOTE | 2017-07-13 00:15 | ED.PDOC ---
General ED Provider: Dr. GRETEL WILLINGHAM Chief Complaint: Eye Problem Stated Complaint: came for the right is red, getting yellow stuff for 4-5 days, feels like some thing is there, no pain. no vision loss. Time Seen by Physician: 00:12 Mode of Arrival: Walk-In Information Source: Patient Primary Care Provider: GRETEL WILLINGHAM-[facility] Nursing and Triage Documentation Reviewed and Agree: Yes Reviewed sepsis parameters & appropriate labs ordered?: Yes System Inflammatory Response Syndrome: Not Applicable Sepsis Protocol: For patient's 13 years and over: Temp is 96.8 and below OR 101 and greater Pulse >90 BPM Resp >20/minute Acutely Altered Mental Status Are patient's symptoms suggestive of a new infection, such as: -Pneumonia -Skin, Soft Tissue -Endocarditis -UTI -Bone, Joint Infection -Implantable Device -Acute Abdominal Infection -Wound Infection -Meningitis -Blood Stream Catheter Infection -Unknown EENT Complaint Exam - Eye Complaint/Exam Symptoms Are: Still present Timing: Constant Initial Severity: Mild Current Severity: Mild Location: Right Character: Reports: Foreign body sensation Aggravating: Reports: None Alleviating: Reports: None Associated Signs and Symptoms: Reports: Purulent drainage. Denies: Photophobia , Clear drainage, Vision impairment, Fever, Swelling Eye Surgical History: Reports: None Penetrating Injury Risk Factors: None Globe Rupture Risk Factors: None Acute Glaucoma Risk Factors: None Visual Field: Normal Extraocular Movement: Normal Orbit Findings: Normal Globe Findings: Intact Lid Findings: Erythema Conjunctival Findings: Red Corneal Findings: Clear Differential Diagnoses: Conjunctivitis Review of Systems - Review Of Systems Constitutional: Reports: No symptoms Eyes: Reports: Foreign body sensation, Inflammation Ears, Nose, Mouth, Throat: Reports: No symptoms Respiratory: Reports: No symptoms Cardiac: Reports: No symptoms GI: Reports: No symptoms : Reports: No symptoms Musculoskeletal: Reports: No symptoms Skin: Reports: No symptoms Neurological: Reports: No symptoms Endocrine: Reports: No symptoms Hematologic/Lymphatic: Reports: No symptoms All Other Systems: Reviewed and Negative Past Medical History - Past Medical History Previously Healthy: Yes Endocrine: Reports: None Cardiovascular: Reports: Hypertension Respiratory: Reports: None Hematological: Reports: None Gastrointestinal: Reports: GERD, Diverticulitis Genitourinary: Reports: None Neuro/Psych: Reports: TIA, CVA Musculoskeletal: Reports: None Cancer: Reports: None - Surgical History General Surgical History: Reports: Hernia Repair (DOUBLE HERNIA ) - Family History Family History: Reports: Unknown - Social History Smoking Status: Current every day smoker, Heavy tobacco smoker Hx Substance Use: No Alcohol Screening: None - Immunizations Tetanus Shot up to Date: Yes Physical Exam - Physical Exam Appearance: Well-appearing, No pain distress, Well-nourished Eyes: KURT, EOMI, Conjunctiva inflammed ENT: Ears normal, Nose normal, Oropharynx normal Respiratory: Airway patent, Breath sounds clear, Breath sounds equal, Respirations nonlabored Cardiovascular: RRR, Pulses normal, No rub, No murmur GI/: Soft, Nontender, No masses, Bowel sounds normal, No Organomegaly Musculoskeletal: Normal strength, ROM intact, No edema, No calf tenderness Skin: Warm, Dry, Normal color Neurological: Sensation intact, Motor intact, Reflexes intact, Cranial nerves intact, Alert, Oriented Psychiatric: Affect appropriate, Mood appropriate Critical Care Note - Critical Care Note Total Time (mins): 30 Course - Course Vital Signs: Temp Pulse Resp BP Pulse Ox 07/13/17 00:02 98.2 F 82 18 185/119 H 96 Departure - Departure Time of Disposition: 00:20 Disposition: HOME SELF-CARE Discharge Problem: Uncontrolled hypertension Conjunctivitis Qualifiers: Conjunctivitis type: acute Acute conjunctivitis type: bacterial Laterality: right Qualified Code(s): H10.31 - Unspecified acute conjunctivitis, right eye Discharge Problem: (Ruled Out): Uncontrolled hypersomnia Instructions: Conjunctivitis (ED) Condition: Stable Pt referred to PMD for follow-up: Yes IPMP verified?: No Additional Instructions: wash with warm water Hand hygiene f/u RHC keep checking BP Allergies/Adverse Reactions: Allergies ciprofloxacin [From Cipro] Adverse Reaction (Verified 07/13/17 00:11) Penicillins Adverse Reaction (Verified 07/13/17 00:11) Home Medications: Ambulatory Orders Diphenhydramine HCl [Benadryl] 50 mg PO BEDTIME PRN 05/09/16 Aspirin [Aspirin EC] 81 mg PO DAILY #30 tablet. 05/28/17 Disposition Discussed With: Patient
[2017-07-13] MEDS ORDERED: MAXITROL OPTH SUSP OP STA (00:19)
[2017-07-13] MEDS ORDERED: CATAPRES PO STA (00:20)
[2017-07-13 01:25] VITALS: BP 107/75
== END 2017-07-13 01:28 | disposition home or self-care (01) ==
LOC: ED
DX: H10.31 Unspecified acute conjunctivitis, right eye (principal); I10 Essential (primary) hypertension; Z86.73 Personal history of transient ischemic attack (TIA), and cerebral infarction without residual deficits; F17.210 Nicotine dependence, cigarettes, uncomplicated
CPT/HCPCS: 99282

== ENCOUNTER 2017-08-28 15:26 | Outpatient (CLI) | END 2017-08-28 15:27 | disposition home or self-care (01) | LOC: LAB 15:26 | PROVIDERS: ATTEND Emergency Medicine | DX: N52.9 Male erectile dysfunction, unspecified (principal); C61 Malignant neoplasm of prostate | CPT/HCPCS: 36415; 83001; 83002; 84153; 84403 ==

== ENCOUNTER 2017-10-06 10:00 | Outpatient (CLI) ==
--- NOTE | 2017-10-06 11:22 | MRI ---
EXAM: MRI brain without IV contrast. DATE: 10/06/2017. HISTORY: Cerebrovascular accident. TECHNIQUE: Sagittal T1W, axial T2W, axial FLAIR, axial T1W, axial DWI, and coronal T2W GRE sequences of the brain were obtained using 1.5 Kaia magnet. No IV contrast. COMPARISON: CT head 26 May 2017. MRI brain 05/09/2016. FINDINGS: The anterior horn of each lateral ventricle, Sylvian fissures and many frontal lobe sulci are slightly prominent due to involutional change. Remaining ventricles, cisterns, and subarachnoid spaces are normal in size and configuration. No midline shift, mass effect or abnormal extra-axial f luid collection is apparent. No acute infarct, hemorrhage or neoplasm is identified. Minimal T2W/FL AIR hyperintensity is observed in the white matter abutting each lateral ventricle. Moderate number of 2 mm to 2 cm, T2W/FLAIR bright foci scattered within the jo radiata, centrum semiovale and sub cortical white matter are similar to April 2016. A 2 mm and a 1 mm FLAIR hyperintense foci are demon strated in the left lateral rambo. The watt - white matter differentiation is normal. The 7th/8th scratcher nial nerve complexes, cerebellopontine angles, and visible cervical spinal cord are normal. There is no cerebellar tonsillar ectopia. The pituitary gland is normal in size and signal. Corpus callosum is normal in size and configuration. Left vertebral artery is larger than the right, and is similar in diameter to the internal carotid arteries. Flow voids are present in the major intracranial arter ies and in the dural venous sinuses. No aneurysm, AVM or dural venous sinus thrombosis is apparent. No orbit abnormality is identified. Small number of inferior right mastoid air cells have T2W brigh t, T1W intermediate signal. Left mastoid air cells are unremarkable. There is partial opacification /opacification of several ethmoid air cells bilaterally. Minor mucosal thickening is noted in the le ft frontal sinus and right maxillary sinus. No neck mass or lymphadenopathy is detected. No calvari al neoplasm or acute fracture is evident. IMPRESSIONS: 1. No acute infarct, hemorrhage, neoplasm or hydrocephalus. 2. Mild cerebral and minor pontine small vessel disease. 3. Minor cerebral involutional change. 4. Bilateral ethmoid chronic sinusitis. 5. Chronic, mild right mastoid effusion / mastoiditis. 6. Left vertebral artery ectasia.
== END 2017-10-06 10:01 | disposition home or self-care (01) ==
LOC: RAD 10:00
PROVIDERS: ATTEND Psychiatry & Neurology Neurology
DX: I63.412 Cerebral infarction due to embolism of left middle cerebral artery (principal)
CPT/HCPCS: 36415; 80061; 83036; 86038

== ENCOUNTER 2017-10-18 09:32 | Outpatient (CLI) ==
--- NOTE | 2017-10-18 11:07 | US ---
EXAM: Bilateral carotid artery Doppler History: Hypertension, headaches and visual impairment Comparison: Carotid Doppler 05/26/2017, brain MRI 10/06/2017 Technique: Multiple sonographic images through the bilateral internal carotid arteries were obtained . Color duplex Doppler was used to interrogate vascular flow. Findings: The right ICA peak systolic velocity is within normal limits measuring 100 cm/sec. The right ICA/cca PSV ratio is normal at 1.1. The right vertebral artery is patent and demonstrates antegrade flow. Tirado scale images demonstrate mild to moderate plaque buildup within the right carotid bulb and proxi mal right internal carotid artery. The left ICA peak systolic velocity is within normal limits measuring 100 cm/sec. The left ICA/cca P SV ratio is normal at 1.1. The left vertebral artery is patent and demonstrates antegrade flow. Gra y scale images demonstrate mild to moderate plaque buildup within the left carotid bulb and proximal left internal carotid artery. Impression: No significant hemodynamic stenosis of the bilateral internal carotid arteries.
== END 2017-10-18 09:33 | disposition home or self-care (01) ==
LOC: RAD 09:32
PROVIDERS: ATTEND Psychiatry & Neurology Neurology
DX: I10 Essential (primary) hypertension (principal); F41.9 Anxiety disorder, unspecified; G47.00 Insomnia, unspecified; K21.9 Gastro-esophageal reflux disease without esophagitis; E78.5 Hyperlipidemia, unspecified; I63.412 Cerebral infarction due to embolism of left middle cerebral artery
CPT/HCPCS: 36415; 80053; 80061; 84443; 85025

== ENCOUNTER 2018-08-19 19:11 | Emergency (ER) ==
[2018-08-19 19:18] VITALS: BP 139/83; TEMP 98.2; BMI 22.6
[2018-08-19] MEDS ORDERED: DECADRON 4 MG/ML SDV IM STA (19:23)
--- NOTE | 2018-08-19 19:25 | ED.PDOC ---
General ED Provider: Dr. GABBY HUNTER-ER Chief Complaint: Rash Stated Complaint: rhea got poison sujatha Time Seen by Physician: 19:23 Mode of Arrival: Walk-In Information Source: Patient Exam Limitations: No limitations Primary Care Provider: NARDA WHALEN Nursing and Triage Documentation Reviewed and Agree: Yes Does patient meet sepsis criteria?: No System Inflammatory Response Syndrome: Not Applicable Sepsis Protocol: For patient's 13 years and over: Temp is 96.8 and below OR 101 and greater Pulse >90 BPM Resp >20/minute Acutely Altered Mental Status Are patient's symptoms suggestive of a new infection, such as: -Pneumonia -Skin, Soft Tissue -Endocarditis -UTI -Bone, Joint Infection -Implantable Device -Acute Abdominal Infection -Wound Infection -Meningitis -Blood Stream Catheter Infection -Unknown Skin Complaint Exam - Skin Rash/Itching Complaint/Exam Onset/Duration: 2 dasy Symptoms Are: Still present Initial Severity: Mild Current Severity: Moderate Location: arms, legs Potential Exposures: Reports: Plants, Insect bite Aggravating: Reports: None Alleviating: Reports: None Associated Signs and Symptoms: Denies: Difficulty breathing, Fever, Chills Skin Findings: Present: Dry scaly skin Differential Diagnoses: Allergic Reaction, Contact Dermatitis Review of Systems - Review Of Systems Constitutional: Reports: No symptoms Eyes: Reports: No symptoms Ears, Nose, Mouth, Throat: Reports: No symptoms Respiratory: Reports: No symptoms Cardiac: Reports: No symptoms GI: Reports: No symptoms, Other : Reports: No symptoms Musculoskeletal: Reports: No symptoms Skin: Reports: Rash Neurological: Reports: No symptoms Endocrine: Reports: No symptoms Hematologic/Lymphatic: Reports: No symptoms All Other Systems: Reviewed and Negative Past Medical History - Past Medical History Previously Healthy: Yes Endocrine: Reports: None Cardiovascular: Reports: Hypertension Respiratory: Reports: None Hematological: Reports: None Gastrointestinal: Reports: GERD, Diverticulitis Genitourinary: Reports: None Neuro/Psych: Reports: TIA, CVA Musculoskeletal: Reports: None Cancer: Reports: None - Surgical History General Surgical History: Reports: Hernia Repair (DOUBLE HERNIA ) - Family History Family History: Reports: Unknown - Social History Smoking Status: Current every day smoker, Heavy tobacco smoker Hx Substance Use: No Alcohol Screening: None - Immunizations Tetanus Shot up to Date: No Physical Exam - Physical Exam Appearance: Well-appearing, No pain distress, Well-nourished Eyes: KURT ENT: Ears normal, Nose normal, Oropharynx normal Neck: Supple Respiratory: Airway patent Cardiovascular: RRR GI/: Tender Musculoskeletal: Normal strength, ROM intact, No edema, No calf tenderness Skin: Warm Neurological: Sensation intact Psychiatric: Affect appropriate, Mood appropriate Critical Care Note - Critical Care Note Total Time (mins): 0 Course - Course Orders, Labs, Meds: Orders Category Date Time Status Dexamethasone 4 mg/ml Inj [Decadron 4 mg/ml Sdv] MEDS 08/19/18 19:23 Stat 8 mg IM ONCE STA Vital Signs: Temp Pulse Resp BP Pulse Ox 08/19/18 19:13 98.2 F 77 20 139/83 97 Departure - Departure Time of Disposition: 19:25 Disposition: HOME SELF-CARE Discharge Problem: Pruritic rash Instructions: Poison Sujatha (ED), Contact Dermatitis (ED) Condition: Good Pt referred to PMD for follow-up: Yes IPMP verified?: No Additional Instructions: f/u with pcp if not improving Allergies/Adverse Reactions: Allergies ciprofloxacin [From Cipro] Adverse Reaction (Verified 08/19/18 19:18) Penicillins Adverse Reaction (Verified 08/19/18 19:18) Home Medications: Ambulatory Orders Diphenhydramine HCl [Benadryl] 50 mg PO BEDTIME PRN 05/09/16 Hydrocortisone [Hydrocortisone 2.5% Cream] 1 applic TP BID #1 appl 08/19/18 Prednisone 10 mg PO DAILY #20 tab.ds.pk 08/19/18 Disposition Discussed With: Patient
[2018-08-19] MEDS ORDERED: TENIVAC IM ONE (19:34)
== END 2018-08-19 19:44 | disposition home or self-care (01) ==
LOC: ED 19:11
DX: L23.7 Allergic contact dermatitis due to plants, except food (principal); F17.210 Nicotine dependence, cigarettes, uncomplicated
CPT/HCPCS: 90471; 90714; 96372; 99282